=== PATIENT | female | born 1935 | race Caucasian/White ===

== ENCOUNTER 2016-12-25 14:39 | Inpatient (IN) | payer MEDICARE ==
--- NOTE | ~2016-12-25 | TH ---
Unit #: [id number] #: [id number] Patient: GUSTAVO GARCIA [id number] [address] [address] [id number] I MR#: [id number] NAME: GUSTAVO GARCIA. : 1935 SEX: F STUDY DATE/TIME: UNIT: [facility] ROOM: 566 STUDY DESCRIPTION: Nuclear Study Attending Physician: Roge Leal M.D. Primary Care Physician: Elizabeth Richards M.D. CARDIOLOGY REPORT EXAM Lexiscan Cardiolite Stress Test - Nuclear Portion DESCRIPTION Using technetium 99m labeled Cardiolite, rest and stress SPECT images were obtained. Multiple SPECT images were obtained in various views including horizontal and vertical long axis and short axis views of the left ventricle. Images were obtained by gated SPECT method. The patient was administered 10.50 mCi of Cardiolite at rest. The patient was administered 35.6 mCi of Cardiolite after Lexiscan infusion was completed. On the stress images, there is normal perfusion noted. The rest images show normal perfusion. Comparing rest and stress images, there is no stress-induced ischemia noted. The left ventricular ejection fraction is calculated to be 62%. There is no focal wall motion abnormality seen. CONCLUSION 1. No stress-induced ischemia noted. 2. The left ventricular ejection fraction is calculated to be 62%. 3. There is no focal wall motion abnormality seen. 4. Normal Lexiscan Cardiolite stress test. 5. Technical quality of the images was extremely limited because of significant gut uptake. Clinical correlation is requested. Dictated by... Kerry Arias TD: 12/28/2016 07:16 JOB #: [id number] Unit #: [id number] #: [id number] Patient: GUSTAVO GARCIA CARDIOLOGY REPORT Page 1 of 1 X Dorothea Simmons MD <ELECTRONICALLY SIGNED> 04/07/17 0897 CARDIOLOGY REPORT
--- NOTE | ~2016-12-25 | EKG ---
PATIENT: GUSTAVO GARCIA UNIT #: [id number] Ventricular Rate: 96 BPM Atrial Rate: 96 BPM P-R Interval: 156 ms QRS Duration: 74 ms Q-T Interval: 360 ms QTC Calculation(Bezet): 454 ms P [place]: 61 degrees Calculated R [place]: 68 degrees Calculated T [place]: 60 degrees Diagnosis Line: Normal sinus rhythm Diagnosis Line: Right atrial enlargement Diagnosis Line: Borderline ECG Diagnosis Line: When compared with ECG of 25-DEC-2016 14:08, Diagnosis Line: No significant change was found Diagnosis Line: Confirmed by ARSENIO GALLEGOS MD ([id number]) on 12/26/2016 Diagnosis Line: 10:24:23 PM INTERPRETING MD: EL HANSON
--- NOTE | ~2016-12-25 | CO ---
Unit #: [id number] #: [id number] Patient: GUSTAVO GARCIA [id number] [address] [address] [id number] I MR#: [id number] NAME: GUSTAVO GARCIA. ROOM: 566 Age: 81 Sex: F Admission Date: 12/25/2016 : 1935 Attending Physician: Roge Leal M.D. Primary Care Physician: Elizabeth Richards M.D. Consultation Date: 12/26/2016 CONSULTATION REPORT REASON FOR CONSULTATION Elevated troponin. HISTORY OF PRESENT ILLNESS This is a pleasant 81-year-old female with no prior cardiac history. She was admitted through the emergency room secondary to complaints of worsening shortness of breath. The patient states this has been occurring for the last 2 weeks. She states she has also had a cough and increasing weakness with some associated falls. When asking the patient what change that brought her into the hospital, she states her brother made her come in for evaluation. She has a past medical history of chronic back pain, COPD, non-small cell lung cancer, status post partial lobectomy with chemo and radiation in [address] Bueno as well as bladder carcinoma, status post transurethral resection of bladder tumor with chemo in 2007, followed by Dr. Seaman. We were asked to see the patient secondary to elevated troponin. Troponin was elevated at 0.15 with a repeat of 0.10. The patient denies any complaints of chest pain. EKG was performed, which shows normal sinus rhythm, 96 beats per minute, right atrial enlargement. No acute ischemic changes noted. The patient has received 325 mg of aspirin orally in the emergency room. At present, she is resting in bed. She denies any complaints of chest pain. It appears she has been admitted secondary to her acute COPD exacerbation. The patient has not had cardiac workup in the past except for many years ago. CT of the chest was performed, which showed no pulmonary embolus. She has been admitted for the above reasons and Cardiology was asked to see again secondary to elevated troponin. PAST MEDICAL HISTORY 1. Non-small cell lung cancer, status post partial lobectomy with chemotherapy and radiation in 2007, followed by Dr. Bueno. 2. Bladder cancer with transurethral resection of the bladder tumor and chemotherapy followed by Dr. Seaman approximately at the same time per the patient. 3. COPD. 4. Chronic back pain. PAST SURGICAL HISTORY 1. Partial lobectomy. 2. Colonoscopy. 3. Transurethral resection of bladder tumor. 4. Back surgery. Unit #: [id number] #: [id number] Patient: GUSTAVO GARCIA 5. Right total knee replacement. SOCIAL HISTORY The patient lives in a private residence. She has a walker and cane that she uses at home for assist. She states her family lives close by, brother who checks on her daily. She is a reformed tobacco user and quit smoking in 2007. Denies any illicit drugs or alcohol. FAMILY HISTORY Positive for an MS and a stroke in her sister in her 60s. ALLERGIES No known drug allergies. HOME MEDICATIONS Flexeril 10 mg p.o. t.i.d. p.r.n., Xanax 1 mg p.o. t.i.d., Lortab 10/325 one tab q.4 hours p.r.n., temazepam 30 mg p.o. q.h.s. REVIEW OF SYSTEMS Performed and is positive for recent weight loss, cough, complaints of intermittent palpitations, intermittent dizziness. Otherwise negative except for what was stated above in the HPI. PHYSICAL EXAMINATION VITAL SIGNS: Temperature 97.7, respiratory rate 18 to 20, pulse is 78 to 103, blood pressure 125/73, oxygen saturation 96% on 2 L nasal cannula. GENERAL: This is a pleasant 81-year-old, elderly female, who is in no acute distress. HEENT: Head is atraumatic and normocephalic. Mucous membranes are moist. NECK: Trachea is midline. Supple. No JVD. Carotid bruits were noted. CARDIOVASCULAR: Regular rate and rhythm. S1, S2. No murmurs, gallops, or rubs. LUNGS: Clear anterior, diminished breath sounds throughout. No adventitious breath sounds. No rales, no rhonchi, no wheezes. ABDOMEN: Soft, nontender, nondistended. Bowel sounds present in all four quadrants. EXTREMITIES: Pulses are palpable. No clubbing, cyanosis, or edema. NEUROLOGIC: She is awake, alert, and oriented. She follows commands. She moves all extremities with ease. DIAGNOSTIC STUDIES LABORATORY RESULTS: Initial troponin was 0.16, repeat of 0.12, this morning laboratory 0.15, and repeat is 0.10. Sodium 139, potassium 5.1, chloride 103, CO2 of 28, BUN 19, creatinine 0.6, glucose 143. Hemoglobin 12.7, hematocrit 39.2, WBC is 5.8, platelet count 292. TSH is 1.27. Total cholesterol is 208. Otherwise unremarkable. She currently has blood cultures, which are pending. D-dimer was 30 to 36. IMAGING STUDIES: Chest x-ray shows old rib fractures and stable compression deformity in the lower thoracic spine. No active pulmonary disease. CT of the chest PE protocol shows no evidence of PE. Venous Doppler was negative for DVT. CARDIOVASCULAR STUDIES: EKG shows normal sinus rhythm, 96 beats per minute, right atrial enlargement. No acute ischemic change. IMPRESSION 1. Acute exacerbation of chronic obstructive pulmonary disease. Unit #: [id number] #: [id number] Patient: GUSTAVO GARCIA 2. Indeterminate troponin with peak at 0.15. 3. Increasing weakness with falls. 4. Chronic back pain, maintained on narcotics. 5. History of non-small cell lung carcinoma, status post partial lobectomy with radiation and chemotherapy, followed by Dr. Bueno. 6. History of bladder cancer, status post transurethral resection of the bladder and chemotherapy followed by Dr. Seaman. 7. Reformed tobacco abuse. PLAN The patient has been admitted for increasing shortness of breath for 2 weeks and weakness with falls. We have been asked to see secondary to elevated troponin. The patient denies any complaints of chest pain. Her elevated troponin could be due to hypoxia versus coronary artery disease. It appears the patient has not had any ischemic evaluation for her heart in quite some time. We will check 2D echocardiogram. If her LVEF is low on echo, she will need a cardiac catheterization. Otherwise, we will proceed with Lexiscan Cardiolite in the a.m. We will start her on statin and aspirin therapy for now. Repeat EKG in the morning, continues to trend cardiac enzymes and CBC in the morning. She will also be started on Lovenox 1 mg/kg subcu daily. The patient is DNR. Thank you for asking see this pleasant patient. We appreciate the consult. Dictated by... Marlin Zamora A.P.R.N. LMW/modl TD: 12/27/2016 06:04 JOB #: [id number] CONSULTATION REPORT Page 1 of 1 X Marlin Zamora APRN CONSULTATION REPORT
--- NOTE | ~2016-12-25 | CT16 ---
[facility] A Service of [facility] RADIOLOGY TEXT RESULTS PATIENT: GUSTAVO GARCIA LOCATION: [facility] 566-01 : 35 UNIT #: [id number] AGE: [address]: Roge Leal MD SEX: F ORDER DR: [id number] [facility] [address] [place], [place] [address] [id number] MR#: [id number] Acc #: [id number] NAME: GUSTAVO GARCIA. : 1935 SEX: F STUDY DATE/TIME: 12/25/2016 16:40 UNIT: [facility] ROOM: [facility] STUDY DESCRIPTION: CT Angio Chest for PE Attending Physician: Sydney Graham M.D. Ordering Physician: Alberto Arias M.D. Primary Care Physician: Elizabeth Richards M.D. MEDICAL IMAGING REPORT This report is preliminary unless electronic signature is present EXAM CT chest PE protocol HISTORY Elevated D-dimer, shortness of air x1 month. FINDINGS Patient has a history of right lower lobe lobectomy for lung cancer. Patient has received apparent radiation therapy. COMPARISON CT chest 11/10/2016 FINDINGS Axial images performed through the chest following IV contrast. 3-D coronal and sagittal reconstructed images were viewed at a workstation. This CT exam was performed with one or more of the following radiation dose reduction techniques: automatic exposure control, adjustment of mA and/or kV according to patient size, and iterative reconstruction. FINDINGS Examination demonstrates deformity of the thorax secondary to scoliosis and previous right lung resection. There is right-sided volume loss. There is extensive pleural thickening and parenchymal opacity in the right midlung posteriorly abutting the pleural surface; may represent the sequela of prior radiation therapy and patient's residual mass. Background parenchyma demonstrates extensive emphysema and fibrosis. No convincing evidence of an acute pulmonary embolus. There is impression along the right pulmonary artery but this appears to be extrinsic to the pulmonary artery and cannot be confirmed on other planes of imaging as a true intraluminal clot. The segmental and subsegmental branches of the pulmonary arteries appear patent. Mild cardiomegaly. Extensive aortic atherosclerotic change. Upper abdomen remarkable for left renal cortical STS. [facility] A Service of [facility] RADIOLOGY TEXT RESULTS PATIENT: GUSTAVO GARCIA LOCATION: [facility] 566-01 : 35 UNIT #: [id number] AGE: [address]: Roge Leal MD SEX: F ORDER DR: atrophy. There is deformity of the right posterior chest wall with exuberant callus, it may be related to prior surgery and radiation therapy. There is a stable T9 compression fracture as well as mild compression deformities at T6-T7. Degenerative changes are noted in the upper lumbar spine. The there is apparent pleural calcifications left posterior thorax as well as right-sided pleural calcifications may be related to previous asbestos related disease. Potentially this could also be post radiation in nature as the pleural calcifications particularly on the left appear new from the October 2016 study. IMPRESSION 1. Abnormal chest CT due to patient's preexisting lung disease. The patient is apparently status post partial right lung resection for lung cancer with residual tumor or mass and pleural thickening right posterior thorax right midlung. This does not appear appreciably changed from the patient's recent CT of 11/10/2016. 2. No convincing evidence of a pulmonary embolus. On the axial images there is a questionable filling defect within the right pulmonary artery; however, this cannot be confirmed on the sagittal and coronal planes of imaging and I suspect represents partial volume averaging secondary to the patient's extensive right lung disease. The absence of abnormalities in other portions of the lungs again supports that this represents a partial volume artifact. 3. New left-sided pleural calcifications particularly along the posterior aspect of the left lung base as well as some right-sided pleural calcifications. Etiology unclear, but this could be the sequela of radiation therapy and the left-sided pleural calcifications appear new from prior CT. Dictated by... Isaac Fish M.D. THIS IS AN ELECTRONICALLY VERIFIED REPORT Isaac Fish M.D. at 12/26/2016 10:59 PM ROBERTA/ronni TD: 12/25/2016 22:15 JOB #: [id number] MEDICAL IMAGING REPORT Page 1 of 1 COPY
--- NOTE | ~2016-12-25 | EKG ---
PATIENT: GUSTAVO GARCIA UNIT #: [id number] Ventricular Rate: 98 BPM Atrial Rate: 98 BPM P-R Interval: 152 ms QRS Duration: 78 ms Q-T Interval: 368 ms QTC Calculation(Bezet): 469 ms P [place]: 62 degrees Calculated R [place]: 54 degrees Calculated T [place]: 53 degrees Diagnosis Line: Normal sinus rhythm Diagnosis Line: Right atrial enlargement Diagnosis Line: Borderline ECG Diagnosis Line: No previous ECGs available Diagnosis Line: Confirmed by ARSENIO GALLEGOS MD ([id number]) on 12/25/2016 Diagnosis Line: 11:04:01 PM INTERPRETING MD: EL HANSON
--- NOTE | ~2016-12-25 | HP ---
Unit #: [id number] #: [id number] Patient: GUSTAVO GARCIA [id number] [address] [address] [id number] I MR#: [id number] NAME: GUSTAVO GARCIA. ROOM: 566 Age: 81 Sex: F Admission Date: 12/25/2016 : 1935 Attending Physician: Sydney Graham M.D. Primary Care Physician: Elizabeth Richards M.D. HISTORY AND PHYSICAL CHIEF COMPLAINT Shortness of breath. HISTORY OF PRESENT ILLNESS The patient is an 81-year-old female with a past medical history of chronic back pain, COPD, lung cancer, and bladder cancer, who presented to the emergency department for evaluation of the above. The patient states that she has had a one month history of increasing shortness of breath and productive cough. She denies any chest pain and no fever or chills. She has had decreased appetite but no vomiting or diarrhea. She denies any urinary symptoms. She has chronic back pain that has been worse over the past couple of days. Upon arrival in the emergency department, the patient's pulse and blood pressure were 104 and 130/82, respectively, and oxygen saturation was 90% on room air. A chest x-ray was done and showed nothing acute. CT of the chest, PE protocol, showed no PE. An EKG was done and showed normal sinus rhythm with a rate of 98 beats per minute. Troponin was 0.16 with a repeat being 0.12. She is being admitted to [facility] for evaluation and further treatment. She did receive 324 mg of aspirin, as well as 125 mg of Solu-Medrol in the emergency department. PAST MEDICAL HISTORY 1. Admission to [facility] November 23-2005, for a right total knee replacement. 2. Lung cancer, status post partial lobectomy, chemotherapy, and radiation in 2007, followed by Dr. Bueno. 3. Bladder cancer, status post transurethral resection of bladder tumor and chemotherapy, followed by Dr. Seaman. 4. 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 5. Chronic back pain, maintained on narcotics, not in pain management. PAST SURGICAL HISTORY 1. Colonoscopy. 2. Transurethral resection of bladder tumor. 3. Back surgery. 4. Right total knee replacement. 5. Partial lobectomy. SOCIAL HISTORY The patient lives alone. She quit smoking in 2007. There is no alcohol use. She typically walks without assistance but has been using a cane Unit #: [id number] #: [id number] Patient: GUSTAVO GARCIA recently due to generalized weakness. FAMILY HISTORY Notable for her mother having lung problems. Her father at the age of 94. ALLERGIES No known allergies. HOME MEDICATIONS 1. Flexeril 10 mg t.i.d. p.r.n. 2. Xanax 1 mg t.i.d. p.r.n. 3. Lortab 10/325 q.4 hours p.r.n. 4. Temazepam 30 mg at bedtime. REVIEW OF SYSTEMS A complete review of systems is negative except as indicated in the History of Present Illness. The patient states that she has lost about 27 pounds over the past three to four months. She states that she has just not had any appetite. PHYSICAL EXAMINATION VITAL SIGNS: Temperature is 97.7, pulse 104, respirations 16, blood pressure 130/82, and oxygen saturation 90% on room air. GENERAL: Patient is a female who is awake and alert. HEENT: Head is atraumatic. Mucous membranes are moist. NECK: Supple. Trachea is midline. CARDIOVASCULAR: Regular rate and rhythm. LUNGS: Decreased breath sounds bilaterally. Breathing is not labored with conversation. ABDOMEN: Soft and nontender with bowel sounds present in all four quadrants. EXTREMITIES: Nontender with no pedal edema. NEUROLOGIC: Patient is awake and alert. She follows commands. PSYCHIATRIC: Mood and affect are normal. Patient is cooperative. SKIN: Skin of examined areas is warm and dry. DIAGNOSTIC STUDIES LABORATORY: Troponin was initially 0.16 and repeat 0.12. Complete blood count notable for MCV of 97.3. Arterial blood gas shows a pH of 7.383, PCO2 of 52.5, and PO2 of 69.9 on 2 liters. Comprehensive metabolic panel notable for albumin of 3.1. INR is 1. D-dimer was 3236. IMAGING: Chest x-ray shows old rib fractures and stable compression deformity involving the lower thoracic vertebral body. No active pulmonary disease. CT of the chest, PE protocol, shows no PE. CARDIOLOGY: EKG shows normal sinus rhythm with a rate of 98 beats per minute. ASSESSMENT The patient is an 81-year-old female with: 1. Chronic obstructive pulmonary disease exacerbation. 2. Elevated troponin. 3. Chronic back pain, maintained on narcotics. 4. History of lung cancer, status post lobectomy, radiation, and chemotherapy, followed by Dr. Bueno. 5. History of bladder cancer, status post transurethral resection of Unit #: [id number] #: [id number] Patient: GUSTAVO GARCIA bladder tumor and chemotherapy, followed by Dr. Seaman. 6. Former smoker. 7. Weight loss. PLAN 1. Admit to intermediate level. 2. Healthy heart diet if passes bedside swallow. 3. Supplemental oxygen 2-4 liters to maintain saturations greater than 92%. 4. DuoNebs q.4 hours while awake and q.2 hours p.r.n. 5. Solu-Medrol 80 mg IV q.12 hours. 6. Doxycycline 100 mg p.o. b.i.d. 7. Mucinex 600 mg p.o. b.i.d. 8. Serial cardiac enzymes. 9. Fasting lipid panel. 10. Consult Dr. Little regarding elevated troponin. 11. Check TSH. 12. P.r.n. Tylenol. 13. Check bilateral lower extremity venous Dopplers due to elevated D-dimer. 14. Protonix for GI prophylaxis since the patient will be on Solu-Medrol. 15. Regarding code status, the patient is a Do Not Resuscitate. 16. Repeat labs in the morning. 17. Additional workup and consultants based on above. Dictated by Kerry Brian/gricelda TD: 12/25/2016 21:10 JOB #: [id number] HISTORY AND PHYSICAL Page 1 of 1 X Sydney Graham MD X HISTORY AND PHYSICAL
--- NOTE | ~2016-12-25 | ST ---
Unit #: [id number] #: [id number] Patient: GUSTAVO GARCIA [id number] [address] [address] [id number] MR#: [id number] NAME: GUSTAVO GARCIA. : 1935 SEX: F STUDY DATE/TIME: 12/27/2016 UNIT: [facility] ROOM: 566 STUDY DESCRIPTION: Stress Test Attending Physician: Roge Leal M.D. Primary Care Physician: Elizabeth Richards M.D. CARDIOLOGY REPORT REASON FOR TEST Chest pain. DESCRIPTION Baseline EKG shows normal sinus rhythm, rate of 88 beats per minute. 0.4 mg of Lexiscan was injected per protocol followed by Cardiolite. The patient had no symptoms during the testing period. Denied any chest pain, shortness of breath, headache or nausea. There were no changes noted to the ST segment suggestive of ischemia. There were frequent PVCs, multifocal in nature but no sustained arrhythmia. The test was stopped secondary to protocol completion. IMPRESSION 1. Negative EKG portion of Lexiscan Cardiolite. 2. No ST-T wave changes suggestive of ischemia. 3. The patient denied any symptoms during the testing. She denied chest pain, shortness of breath, headache, nausea or abdominal pain. 4. There were frequent PVCs, some multifocal in nature but no sustained arrhythmias. 5. The patient had a normal blood pressure response to the medication. 6. Please correlate with nuclear imaging. Dictated by... Margarita CardenasRRainNRain for Dorothea Simmons M.D. LMW/df TD: 12/28/2016 06:49 JOB #: [id number] Unit #: [id number] #: [id number] Patient: GUSTAVO GARCIA CARDIOLOGY REPORT Page 1 of 1 X Marlin Zamora APRN CARDIOLOGY REPORT
--- NOTE | ~2016-12-25 | DS ---
Unit #: [id number] #: [id number] Patient: GUSTAVO GARCIA [id number] [address] [address] [id number] I MR#: [id number] NAME: GUSTAVO GARCIA. ROOM: 566 Age: 81 Sex: F Admission Date: 12/25/2016 : 1935 Discharge Date: 12/27/2016 Attending Physician: Roge Leal M.D. Primary Care Physician: Elizabeth Richards M.D. DISCHARGE SUMMARY ADMITTING DIAGNOSIS Chronic obstructive pulmonary disease exacerbation. DISCHARGE DIAGNOSIS Chronic obstructive pulmonary disease exacerbation. HISTORY OF PRESENT ILLNESS The patient is an 81-year-old lady with a past medical history of COPD, chronic back pain, lung cancer, bladder cancer, presented to the emergency room with a chief complaint of shortness of breath. HOSPITAL COURSE She was started on steroids p.r.n. breathing treatments. She is very anxious, very eager to go home. She did have mild elevation of troponin to 0.15. Cardiology was consulted. She did have a 2D echo. The 2D echo showed an EF of 50% to 55%, mild concentric LV hypertrophy, mild biatrial (1) and no evidence of pericardial effusion. She had a Cardiolite stress test and Cardiolite stress test was essentially normal. She is doing clinically better, she wants to go home. We will discharge her and request her to follow with her primary care. On the day of the discharge, her physical examination: VITAL SIGNS - temperature 98, pulse rate 92, respiratory rate 18, blood pressure 122/69. The patient is alert and oriented x3, lying in the bed, in no acute distress. HEENT - normocephalic, atraumatic. No icterus. PERRLA, extraocular movements intact. NECK is supple. No JVD. HEART - S1, S2. Regular rate and rhythm. CHEST - bilateral equal air entry. No rhonchi. ABDOMEN soft, nontender. Bowel sounds present. EXTREMITIES - no edema, normal pulses. DISCHARGE MEDICATIONS Her discharge medications include: 1. Medrol Dosepak. 2. Zithromax/azithromycin 250 mg p.o. daily for five days. 3. Xanax 1 mg p.o. three times a day p.r.n. 4. Temazepam 30 mg at bedtime p.r.n. for sleep. 5. Humibid LA 600 mg twice a day. 6. Lipitor 20 mg daily. 7. Aspirin 81 mg daily. 8. Protonix 40 mg daily. 9. Flexeril 10 mg daily. 10. Advair Diskus 250/50 mcg, one puff twice a day. She was instructed to follow with her primary care and with pulmonary as Unit #: [id number] #: [id number] Patient: GUSTAVO GARCIA an outpatient. Total time spent in her care - 28 minutes. Dictated by... Kerry Carreno TD: 12/29/2016 08:00 JOB #: [id number] DISCHARGE SUMMARY Page 1 of 1 X X DISCHARGE SUMMARY
--- NOTE | ~2016-12-25 | US84 ---
[id number] [facility]. [facility] [address] [place], [place] [address] [id number] I MR#: [id number] Acc #: [id number] NAME: GUSTAVO GARCIA : 1935 SEX: F STUDY DATE/TIME: 12/25/2016 19:57 UNIT: [facility] ROOM: [id number] STUDY DESCRIPTION: US LE Veins Complete Pablo Stdy Attending Physician: Sydney Graham M.D. Ordering Physician: Sydney Graham M.D. Primary Care Physician: Elizabeth Richards M.D. MEDICAL IMAGING REPORT This report is preliminary unless electronic signature is present EXAM Bilateral lower extremity venous Doppler. HISTORY Difficulty breathing x1 month. TECHNIQUE Venous ultrasound examination of both lower extremities was performed using grayscale, spectral Doppler and color flow Doppler imaging. FINDINGS The examination is negative. There is no evidence of deep venous thrombus from the groin to the lower calf bilaterally. Visualized greater saphenous veins are also patent. IMPRESSION Negative examination. No evidence of lower extremity deep venous thrombosis. Dictated by... Isaac Fish M.D. THIS IS AN ELECTRONICALLY VERIFIED REPORT Isaac Fish M.D. at 12/26/2016 10:59 PM ROBERTA/sourav TD: 12/26/2016 00:04 JOB #: [id number] MEDICAL IMAGING REPORT Page 1 of 1 COPY
--- NOTE | ~2016-12-25 | CR72 ---
[facility] A Service of [facility] & [facility] RADIOLOGY TEXT RESULTS PATIENT: GUSTAVO GARCIA LOCATION: [facility] 566-01 : 35 UNIT #: [id number] AGE: [address]: Roge Leal MD SEX: F ORDER DR: [id number] [facility] [address] [place], [place] [address] [id number] E MR#: [id number] #: [id number] NAME: GUSTAVO GARCIA : 1935 SEX: F STUDY DATE/TIME: 12/25/2016 14:05 UNIT: [facility] ROOM: STUDY DESCRIPTION: CR Chest Single View Portable Attending Physician: Alberto Arias M.D. Ordering Physician: Alberto Arias M.D. Primary Care Physician: Elizabeth Richards M.D. MEDICAL IMAGING REPORT This report is preliminary unless electronic signature is present EXAM Portable chest 12/25/2016 HISTORY Shortness breath and generalized weakness beginning today. History of lung carcinoma and right lobectomy, chemotherapy and radiation therapy. FINDINGS The heart is top normal in size. There is dextroscoliosis of the thoracic spine. Multiple old healed right rib fractures are seen with abundant callous formation. No airspace consolidation is seen. There are no pleural effusions. Pleural thickening is seen at the right lung apex. IMPRESSION Old healed right rib fractures and pleural thickening at the right lung apex. Stable compression deformity involving a lower thoracic vertebral body compared with chest CT 11/10/2016. No active pulmonary disease. Dictated by... Ishan Emmanuel M.D. THIS IS AN ELECTRONICALLY VERIFIED REPORT Ishan Emmanuel M.D. at 12/27/2016 8:16 AM SHERRY/perla TD: 12/25/2016 16:14 JOB #: [id number] MEDICAL IMAGING REPORT Page 1 of 1 COPY
--- NOTE | ~2016-12-25 | EKG ---
PATIENT: GUSTAVO GARCIA UNIT #: [id number] Ventricular Rate: 92 BPM Atrial Rate: 92 BPM P-R Interval: 154 ms QRS Duration: 76 ms Q-T Interval: 356 ms QTC Calculation(Bezet): 440 ms P [place]: 45 degrees Calculated R [place]: 90 degrees Calculated T [place]: 17 degrees Diagnosis Line: Normal sinus rhythm Diagnosis Line: Rightward axis Diagnosis Line: Borderline ECG Diagnosis Line: When compared with ECG of 26-DEC-2016 10:58, Diagnosis Line: No significant change was found Diagnosis Line: Confirmed by ARSENIO GALLEGOS MD ([id number]) on 12/28/2016 Diagnosis Line: 7:48:21 PM INTERPRETING MD: EL HANSON
[2016-12-25 14:13] LABS: POC - CKMB 4.2 ng/mL (0.0-7.9); POC - TROPONIN 0.16 ng/mL (<=0.05)
[2016-12-25 14:15] LABS: BASOPHIL# 0.1 X10e3 (0-0.3); BASOPHIL% 1.4 % (0-2.5); EOSINOPHIL# 0.3 X10e3 (0-0.7); EOSINOPHIL% 6.2 % (0.0-7.0); HEMATOCRIT 43.7 % (35.0-45.0); HEMOGLOBIN 14.1 gm/dL (12.0-16.0); LYMPHOCYTE% 19.1 % (17.0-45.0); MEAN CELL VOLUME 97.3 FL (83-96); MEAN CORPUSCULAR HEMOGLOBIN 31.3 PG (28-34); MEAN CORPUSCULAR HGB CONC 32.2 g/dL (30-36); MEAN PLATELET VOLUME 8.3 FL (6.5-11.5); MONOCYTE# 0.8 X10e3 (0-1.0); MONOCYTE% 15.4 % (3.0-12.0); NEUTROPHIL# 3.1 X10e3 (1.5-7.1); NEUTROPHIL% 57.9 % (40-75); PLATELET COUNT 295 X10e3 (140-420); RED BLOOD COUNT 4.49 X10e (3.90-5.30); RED CELL DISTRIBUTION WIDTH 14.4 % (11.0-15.5); WHITE BLOOD COUNT 5.3 X10e3 (4.0-10.5)
[2016-12-25 14:17] LABS: DIFF IND NO
[2016-12-25 14:23] LABS: ARTERIAL BLD GAS O2 SATURATION 92.6 % (90.0-100.0); ARTERIAL BLOOD GAS CARBOXY HB 1.1 %sat (0.0-9.0); ARTERIAL BLOOD GAS HCO3 31.2 mmol/L; ARTERIAL BLOOD GAS MET HB 0.8 %sat (0.0-2.0); ARTERIAL BLOOD GAS pH 7.383 (7.350-7.450)
[2016-12-25 14:24] LABS: ARTERIAL BLOOD GAS ALLEN TEST NORMAL; ARTERIAL BLOOD GAS ART SITE RIGHT RADIAL; ARTERIAL BLOOD GAS DELIVERY NASAL CANNULA; ARTERIAL BLOOD GAS PCO2 52.5 mmHg (35.0-45.0); ARTERIAL BLOOD GAS PO2 69.9 mmHg (80.0-100); ARTERIAL DRAW? YES
[2016-12-25 14:33] LABS: PARTIAL THROMBOPLASTIN TIME 22.9 SECONDS (23.5-31.3)
[~2016-12-25 14:39] MED LIST: ACETAMINOPHEN PO; AMITRYPTYLINE PO; ASPIRIN PO; AUGMENTIN PO; CALCIUM 500 + D1 TAB PO; CALCIUM1 TAB.CHEW; CENTRUM SILVER PO; FISH OIL 1,001000 MG PO; FLEXERIL PO; IBUPROFEN PO; KEFLEX500 MG PO; MAGNESIUM200 MG PO; MULTIVITAMIN1 UDCAP PO; THEOPHYLLIN PO; [UNRECOGNIZED DRUG - OTHER]
[2016-12-25 14:40] LABS: ALBUMIN SERUM 3.1 g/dL (3.5-5.0); BILIRUBIN, DIRECT 0.1 mg/dL (0.0-0.2); BILIRUBIN,INDIRECT 0.3 mg/dL (0.0-0.9); BILIRUBIN,TOTAL 0.4 mg/dL (0.2-2.0); BUN/CREATININE RATIO 23.33; CALCIUM SERUM 9.3 mg/dL (8.4-10.2); CREATININE SERUM 0.6 mg/dL (0.6-1.4); GLOM FILT RATE Estimated 85.5 mL/min (>60); PROTEIN TOTAL SERUM 7.6 g/dL (6.0-8.3)
[2016-12-25 15:49] LABS: POC - CKMB 2.6 ng/mL (0.0-7.9); POC - TROPONIN 0.12 ng/mL (<=0.05)
[2016-12-25] MEDS ORDERED: FLEXERIL10 MG PO (16:04)
[2016-12-25] MEDS ORDERED: XANAX1 MG PO (16:04)
[2016-12-25] MEDS ORDERED: LORTAB 10-3251 EACH PO (16:05)
[2016-12-25] MEDS ORDERED: TEMAZEPAM30 MG PO (16:06)
[2016-12-25 18:59] LABS: CHOLESTEROL 208 mg/dL (0-200); HDL CHOLESTEROL 62 mg/dL (35-95); LDL CHOLESTEROL 121 mg/dL (-130); LDL/HDL RATIO 2 RATIO (0-4); TRIGLYCERIDES 124 mg/dL (10-160)
[2016-12-25 21:48] LABS: CK TOTAL 36 IU/L (26-140)
[2016-12-26 07:10] LABS: HEMATOCRIT 39.2 % (35.0-45.0); HEMOGLOBIN 12.7 gm/dL (12.0-16.0); MEAN CELL VOLUME 97.5 FL (83-96); MEAN CORPUSCULAR HEMOGLOBIN 31.5 PG (28-34); MEAN CORPUSCULAR HGB CONC 32.3 g/dL (30-36); RED BLOOD COUNT 4.02 X10e (3.90-5.30); WHITE BLOOD COUNT 5.8 X10e3 (4.0-10.5)
[2016-12-26 07:50] LABS: ALBUMIN SERUM 2.7 g/dL (3.5-5.0); BILIRUBIN,TOTAL 0.3 mg/dL (0.2-2.0); BUN/CREATININE RATIO 31.66; CREATININE SERUM 0.6 mg/dL (0.6-1.4); GLOM FILT RATE Estimated 85.5 mL/min (>60); POTASSIUM 5.1 mmol/L (3.5-5.1); PROTEIN TOTAL SERUM 6.4 g/dL (6.0-8.3)
[2016-12-26 08:07] LABS: CK TOTAL 31 IU/L (26-140)
[2016-12-27 08:30] LABS: HEMATOCRIT 36.3 % (35.0-45.0); HEMOGLOBIN 11.7 gm/dL (12.0-16.0); MEAN CELL VOLUME 98.6 FL (83-96); MEAN CORPUSCULAR HEMOGLOBIN 31.9 PG (28-34); MEAN CORPUSCULAR HGB CONC 32.4 g/dL (30-36); MEAN PLATELET VOLUME 8.5 FL (6.5-11.5); RED BLOOD COUNT 3.68 X10e (3.90-5.30); RED CELL DISTRIBUTION WIDTH 14.3 % (11.0-15.5)
[2016-12-27 08:52] LABS: WHITE BLOOD COUNT 15.3 X10e3 (4.0-10.5)
[2016-12-27 09:06] LABS: BUN/CREATININE RATIO 31.66; CALCIUM SERUM 9.1 mg/dL (8.4-10.2); CREATININE SERUM 0.6 mg/dL (0.6-1.4); GLOM FILT RATE Estimated 85.5 mL/min (>60); POTASSIUM 4.5 mmol/L (3.5-5.1)
[2016-12-27] MEDS ORDERED: HUMIBID-LA600 MG PO (18:31)
[2016-12-27] MEDS ORDERED: LIPITOR20 MG PO (18:31)
[2016-12-27] MEDS ORDERED: ASPIRIN81 MG PO (18:32)
[2016-12-27] MEDS ORDERED: PROTONIX PO (18:32)
[2016-12-27] MEDS ORDERED: MEDROL DOSEPAK4 MG PO (18:33)
[2016-12-27] MEDS ORDERED: AZITHROMYCIN250 MG PO (18:43)
[2016-12-27] MEDS ORDERED: ADVAIR 250-501 EACH INH (18:44)
== END 2016-12-27 20:17 | disposition home or self-care (01) | DRG 192 ==
LOC: CED 14:39 → CEDOF 18:29 → C5C 20:34
PROVIDERS: Emergency Medicine; Family Medicine; Internal Medicine Cardiovascular Disease; Nurse Practitioner
PROC: B32TYZZ Computerized Tomography (CT Scan) of Left Pulmonary Artery using Other Contrast (ICD-10-PCS; principal; 2016-12-25)
PROC: B32SYZZ Computerized Tomography (CT Scan) of Right Pulmonary Artery using Other Contrast (ICD-10-PCS; 2016-12-25)
PROC: B24BYZZ Ultrasonography of Heart with Aorta using Other Contrast (ICD-10-PCS; 2016-12-27)
DX: J44.1 Chronic obstructive pulmonary disease with (acute) exacerbation (principal); E78.5 Hyperlipidemia, unspecified; M54.9 Dorsalgia, unspecified; G89.29 Other chronic pain; Z96.651 Presence of right artificial knee joint; Z85.118 Personal history of other malignant neoplasm of bronchus and lung; Z85.51 Personal history of malignant neoplasm of bladder; Z87.891 Personal history of nicotine dependence; R74.9 Abnormal serum enzyme level, unspecified; R63.4 Abnormal weight loss; R53.1 Weakness; Z91.81 History of falling
CPT/HCPCS: 36415; 36600; 71010; 71275; 78452; 80048; 80053; 80061; 80076; 82550; 82553; 82803; 83735; 84443; 84484; 85025; 85027; 85379; 85610; 85730; 87040; 93005; 93017; 93306; 93970; 94640; 94760; 96374; 99291; A9500; J1650; J2785; J2930; Q9967

== ENCOUNTER → 2017-05-24 | Outpatient (CLI) | payer MEDICARE ==
[~2017-05-24] MED LIST changes: +ADVAIR 250-501 EACH INH; +ASPIRIN81 MG PO; +AZITHROMYCIN250 MG PO; +FLEXERIL10 MG PO; +HUMIBID-LA600 MG PO; +LIPITOR20 MG PO; +LORTAB 10-3251 EACH PO; +MEDROL DOSEPAK4 MG PO; +PROTONIX PO; +TEMAZEPAM30 MG PO; +XANAX1 MG PO
--- NOTE | ~2017-05-24 | CT55 ---
[facility] A Service of [facility] & [facility] RADIOLOGY TEXT RESULTS PATIENT: GUSTAVO GARCIA LOCATION: [facility] : 35 UNIT #: [id number] AGE: [address]: Sergo Bueno MD SEX: F ORDER DR: [id number] [facility] [address] [place], [place] [address] [id number] O MR#: [id number] [facility] #: [id number] NAME: GUSTAVO GARCIA : 1935 SEX: F STUDY DATE/TIME: 05/24/2017 14:14 UNIT: [facility] ROOM: STUDY DESCRIPTION: CT Chest W Con Attending Physician: Sergo Bueno M.D. Referring Physician: Sergo Bueno M.D. Ordering Physician: Sergo Bueno M.D. Primary Care Physician: Elizabeth Richards M.D. MEDICAL IMAGING REPORT This report is preliminary unless electronic signature is present EXAM CT chest with contrast 05/24/2017 HISTORY Lung cancer. Observation for metastatic disease. Restaging. Mid back pain for [address] angiography of the chest 12/25/2016. CT chest with contrast 11/10/2016. PROCEDURE 5 mm axial images through the chest after IV contrast administration. Sagittal and coronal reformatted images were obtained. This CT examination was performed with one or more of the following radiation dose reduction techniques: automatic exposure control, adjustment of mA and/or kV according to patient size, and iterative reconstruction. FINDINGS There is persistent pleural parenchymal thickening and consolidative change with volume loss, predominantly within the right lower lobe superiorly and the right midlung zone, abutting the right hilum. There is some resulting traction bronchiolectasis in the same vicinity. Old right rib fractures with heterotopic ossification are seen posteriorly and laterally within the right mid chest, unchanged from prior. There are chronic compression fractures of T6, T7, T8 and T9 which are unchanged. There are old right T7, T8, T9 transverse process fractures. Advanced loss of disc height with endplate sclerosis is present at L1-2. No acute osseous abnormalities are identified. Moderate emphysematous changes are present. Chronic mild scarring in the central left upper lobe. No acute or suspicious left lung changes. No pathologic mediastinal, supraclavicular or axillary adenopathy is seen. [facility]. [facility] A Service of [facility] & 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 No dissection. Coronary artery calcifications are present. There is mid thoracic dextroscoliosis. Included upper abdominal organs are within normal limits with no evidence of upper abdominal metastatic disease. IMPRESSION 1. Extensive pleural parenchymal thickening and/or consolidative change in the posterior right midlung, predominantly involving the superior segment right lower lobe, with adjacent chronic rib fractures with callous formation or heterotopic ossification. These findings appear very similar to the 11/10/2016 examination and may represent sequelae of previous radiation therapy with fibrosis. Residual underlying mass lesion cannot be completely excluded, but again, this appears to be a stable finding. 2. No new or acute chest findings. 3. Chronic-appearing thoracic vertebral body compression fractures, greatest at T9, without significant change from prior. Old right transverse process fractures. 4. Emphysema. 5. Thoracic dextroscoliosis. 6. 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 7. Mild coronary artery calcifications. Please correlate with cardiac history. Dictated by... Radha Carpio M.D. THIS IS AN ELECTRONICALLY VERIFIED REPORT Radha Carpio M.D. at 05/26/2017 1:11 PM LORENZA/madelyn TD: 05/25/2017 13:44 JOB #: [id number] MEDICAL IMAGING REPORT Page 1 of 1 COPY
[2017-05-24 15:41] LABS: POC - CREATININE 0.53 mg/dL (0.44-1.03); POC - GFR >60.0 mL/min (>60)
== END | disposition home or self-care (01) ==
LOC: CCAT 12:44
PROVIDERS: Internal Medicine Hematology
DX: C34.90 Malignant neoplasm of unspecified part of unspecified bronchus or lung (principal); C34.31 Malignant neoplasm of lower lobe, right bronchus or lung; R91.8 Other nonspecific abnormal finding of lung field; M48.54XA Collapsed vertebra, not elsewhere classified, thoracic region, initial encounter for fracture; J43.9 Emphysema, unspecified; M41.9 Scoliosis, unspecified; I71.2 Thoracic aortic aneurysm, without rupture; I77.1 Stricture of artery; I25.10 Atherosclerotic heart disease of native coronary artery without angina pectoris
CPT/HCPCS: 71260; 82565; Q9967